=== PATIENT | female | born 1945 | race Two or more races ===

== ENCOUNTER 2017-10-14 12:04 | Emergency (ER) | payer MEDICARE, BC ==
--- NOTE | 2017-10-14 13:35 | ER Document Report ---
HPI - HPI Patient complains to provider of: rash Onset: Other - few days Onset/Duration: Gradual Pain Level: Denies Context: 72 yo female wtih itchy red rash from wearing dangly cheap earrings left neck. Worse after using neosporin at first, then hydrocortisone. No fever. No pain. Associated Symptoms: None Exacerbated by: Denies Relieved by: Denies - ROS ROS below otherwise negative: Yes Systems Reviewed and Negative: Yes All other systems reviewed and negative Past Medical History - General Information source: Patient - Social History Smoking Status: Never Smoker Frequency of alcohol use: None Drug Abuse: None Lives with: Spouse/Significant other Family History: Reviewed & Not Pertinent - Medical History Medical History: Negative Surgical Hx: Negative Vertical Provider Document - CONSTITUTIONAL Agree With Documented VS: Yes Exam Limitations: No Limitations General Appearance: No Apparent Distress - INFECTION CONTROL TRAVEL OUTSIDE OF THE [place] IN LAST 30 DAYS: No - HEENT HEENT: Normocephalic - NECK Neck: Supple. negative: Lymphadenopathy-Left, Lymphadenopathy-Right Notes: red papular rash-dermatitis left neck - RESPIRATORY Respiratory: Breath Sounds Normal, No Respiratory Distress O2 Sat by Pulse Oximetry: 97 - CARDIOVASCULAR Cardiovascular: Regular Rate, Regular Rhythm - NEURO Level of Consciousness: Awake, Alert - DERM Integumentary: Warm, Dry Course - Vital Signs Vital signs: Temp Pulse Resp BP Pulse Ox 98.0 F 76 14 142/75 H 97 10/14/17 12:11 10/14/17 12:11 10/14/17 12:11 10/14/17 12:11 10/14/17 12:11 Discharge - Discharge Clinical Impression: left neck dermatitis Condition: Good Disposition: HOME, SELF-CARE Instructions: Contact Dermatitis ([facility]), Cephalexin ([facility]), Topical Steroid Cream or Ointment ([facility]) Additional Instructions: continue the Steroid Cream THREE times per day, small amount no neosporin dove unscented soap do not scratch antibiotic for 1 week see fuller brush man for follow up- Dr. Carlisle in [facility] Prescriptions: Cephalexin Monohydrate [Keflex 500 mg Capsule] 500 mg PO QID #28 capsule Referrals: SARAH CARLISLE, [ACTIVE STAFF] - Follow up as needed
[2017-10-14 13:58] VITALS: BP 154/70
== END 2017-10-14 13:57 | disposition home or self-care (01) ==
LOC: ER 12:04
DX: L30.9 Dermatitis, unspecified (principal)
CPT/HCPCS: 99282